=== PATIENT | female | born 1995 | race Caucasian/White ===

== ENCOUNTER 2016-07-13 11:34 | Day surgery (SDC) | payer MEDICAID ==
[~2016-07-13] VITALS: Ht 162.6 cm; Wt 68.0 kg
[2016-07-13 13:50] LABS: BASOPHILS 0.1 % (0.0-2.0); EOSINOPHILS 1.3 % (0-7); HEMOGLOBIN 10.3 g/dL (12-16); IMMATURE GRANULOCYTES 0.2 % (0-5); LYMPHOCYTES 19.6 % (15-50); MCH 25.1 pg (26.0-34.0); MCHC 30.3 g/dL (31.0-37.0); MCV 82.9 fL (80.0-100.0); MEAN PLATELET VOLUME 9.5 fL (7.4-10.4); MONOCYTES 8.5 % (2-11); NEUTROPHILS 70.3 % (40-80); PLATELET COUNT 351 10x3/uL (130-400); RDW 14.5 % (11.5-14.5); WBC 8.7 10x3/uL (4.8-10.8)
[2016-07-13 13:56] LABS: HCG SERUM NEGATIVE (NEGATIVE)
[2016-07-13 14:01] LABS: ALBUMIN 3.2 g/dL (3.4-5.0); ALKALINE PHOSPHATASE 131 U/L (46-116); ALT (SGPT) 42 U/L (10-68); BILIRUBIN - TOTAL 0.27 mg/dL (0.2-1.3); CALC OSMOLALITY 271 mosm/kg (275-300); CALCIUM 9.1 mg/dL (8.5-10.1); CARBON DIOXIDE 25.1 mmol/L (21.0-32.0); CHLORIDE - SERUM 103 mmol/L (98-107); CREATININE - SERUM 0.9 mg/dL (0.6-1.3); GLUCOSE 83 mg/dL (74-106); PROTEIN - SERUM 7.9 g/dL (6.4-8.2); SODIUM 137 mmol/L (136-145); UREA NITROGEN 10 mg/dL (7-18); eGFR NON AFRICAN AMERICAN 85 mL/min (90-120)
[2016-07-13 14:05] LABS: APPEARANCE SLT CLOUDY (CLEAR); BACTERIA MODERATE /hpf (NONE SEEN); BILIRUBIN NEGATIVE (NEGATIVE); COLOR YELLOW (YELLOW); GLUCOSE NEGATIVE (NEGATIVE); KETONE NEGATIVE (NEGATIVE); LEUKOCYTE ESTERASE 2+ (NEGATIVE); NITRITE NEGATIVE (NEGATIVE); PROTEIN 1+ mg/dL (NEGATIVE)
--- NOTE | 2016-07-13 20:44 | NUR ---
RECEIVED PT VIA WC FROM ED, PT TO ROOM 1220, TRANSFERS SELF TO BED, INFORMED PT THAT I WILL BE BACK SHORTLY TO DO ADMITTING ASSESSMENT AND PAPERWORK, PT VERBALIZES UNDERSTANDING, PT ORIENTED TO ROOM, BED IN LOW POSITION, SIDE RAILS X 2, CALL LIGHT IN REACH, S/O AT BEDSIDE
--- NOTE | 2016-07-13 21:41 | NUR ---
ADMITTING ASSESSMENT AND HISTORY INTIATED, IV IN RIGHT AC INTACT WITH NO REDNESS OR EDEMA INFUSING VIA PUMP NS AT 125 ML/HR, PT REPORTS FLATUS, BM YESTERDAY AND VOIDING BY SELF WITH NO DIFFICULTY, PT RATES LOWER RIGHT ABD PAIN 1-2/10 AT THIS TIME
[2016-07-13 21:50] VITALS: BP 118/75; BMI 25.8
--- NOTE | 2016-07-13 22:00 | NUR ---
CONSENTS SIGNED AND WITNESSED
[2016-07-13] MEDS ORDERED: AUGMENTIN 875-11 TAB PO (22:01)
[2016-07-13] MEDS ORDERED: HYDROCODON-ACE1 EAC7 PO (22:01)
--- NOTE | 2016-07-13 22:17 | NUR ---
ADMITTING ASSESSMENT AND HISTORY COMPLETED, DILAUDID BLUE LEATHER SETTER INITIATED, SEE EMAR, PT INST ON AND VERBALIZES UNDERSTANDING OF BLUE LEATHER SETTER, BUTTON TO HAND, PT DECLINES TO PUSH THE BUTTON AT THIS TIME, PT INST ON NPO AFTER MIDNIGHT, VERBALIZES UNDERSTANDING, REQUESTED AND SERVED APPLE JUICE, DENIES FURTHER NEEDS AT THIS TIME
[2016-07-14 00:25] VITALS: BP 114/69
--- NOTE | 2016-07-14 00:25 | NUR ---
PT AWAKE, S/O LAYING IN BED WITH PT, VS OBTAINED, PT INFORMED AGAIN OF NPO, PT VERBALIZES UNDERSTANDING, DENIES NEEDS OR PAIN, REPORTS THAT THE FABRICATION AND LAYOUT CRAFTSMAN IS TAKING CARE OF THE PAIN, BEDDING PROVIDED TO FOB
--- NOTE | 2016-07-14 02:05 | NUR ---
PT RESTING WITH EYES CLOSED, RESP QUIET, NO DISTRESS NOTED, LEFT UNDISTURBED AT THIS TIME, S/O ASLEEP IN BED WITH PT
[2016-07-14 04:03] VITALS: BP 105/56
--- NOTE | 2016-07-14 04:03 | NUR ---
PT RESTING WITH EYES CLOSED, AROUSES TO SOFT VERBAL STIMULATION, VS OBTAINED, I&O'S COLLECTED, PT DENIES NEEDS OR PAIN, S/O ASLEEP IN BED WITH PT
--- NOTE | 2016-07-14 06:11 | NUR ---
PT RESTING WITH EYES CLOSED, AROUSES TO SOFT VERBAL STIMULATION, 0600 MED HUNG IVPB PER MD ORDERS, SEE EMAR, PT DENIES NEEDS OR PAIN AT THIS TIME, S/O ASLEEP IN BED WITH PT
--- NOTE | 2016-07-14 06:57 | NUR ---
ADM ANESTHESIA MEDS, SEE EMAR, LR HUNG VIA PUMP INFUSING AT 50 ML/HR
--- NOTE | 2016-07-14 07:00 | NUR ---
SHIFT REPORT TO DAY SHIFT
[2016-07-14 09:26] VITALS: Ht 162.6 cm; Wt 68.0 kg
--- NOTE | 2016-07-14 12:30 | NUR ---
PT RECEIVED FROM SURGERY S/P APPENDECTOMY. PT IS DROWSY BUT EASILY AWAKENS. LUNGS- CLEAR. HEART- RRR. ABD- SOFT WITH TENDERNESS. LAPAROSCOPIC INCISIONS COVERED WITH BANDAIDS. CLEAN , DRY AND INTACT. EXT- NO EDEMA. PULSE PALPABLE. BED IS LOW, SIDE RAILS UP X 2. CALL LIGHT IN REACH. RECOVERY MANAGER INITIATED AGAIN.
--- NOTE | 2016-07-14 12:36 | NUR ---
PT TOLERATED CLEAR LIQUIDS. PT REQUEST REGULAR DIET. I CALLED DR HERNÁNDEZ AND HE STATED SHE CAN HAVE REGULAR DIET AND CAN BE DISCHARGE THIS PM. PT C/O NO PAIN AT THIS TIME.
--- NOTE | 2016-07-14 13:30 | NUR ---
PT IS SLEEPING IN BED. AT BEDSIDE. BED IS LOW, SIDE RAILS UP X 2 AND CALL LIGHT IN REACH.
--- NOTE | 2016-07-14 14:45 | NUR ---
PT ATE A CHEESEBURGER AND FRIES. PT OFFERS NO COMPLAINTS.
--- NOTE | 2016-07-14 15:57 | NUR ---
PT UP AND AMBULATED APPROX 200 FT IN HALLWAY. TOLERATED WELL.
--- NOTE | 2016-07-14 16:38 | NUR ---
DISCHARGE INSTRUCTIONS GIVEN TO PT, AND MOTHER. HANDOUTS GIVEN WELL PRESCRIPTIONS AND FU APPTS. PT WAS TAKEN TO THE FRONT ENTRANCE TO HER VEHICLE BY WHEELCHAIR.
--- NOTE | 2016-07-14 21:45 | NUR ---
HOUSEKEEPING CALLED MY ATTENTION TO IV PUMP THAT NEEDS TO BE UNLOCKED FOR CLEANING. FOUND HYDROMORPHONE CONVEYOR ATTENDANT SYRINGE IN CONVEYOR ATTENDANT PUMP. PT ALREADY DISCHARGED. TALKED TO SHERRIE IN PHARMACY TO HOW TO WASTE SAID MEDICATION. STATED TO GET ANOTHER NURSE TO WITNESS WASTE AND DOCUMENT ON HER CHART. HYDROMORPHONE 27cc WASTED AND WITNESSED WITH PATRICIA KAUR RN.
--- NOTE | 2016-07-16 09:40 | DS ---
PATIENT:ANUSHA HARRIS :89 MEDICAL RECORD: [id number] DISCHARGE SUMMARY ADMISSION DATE: 07/13/16 DISCHARGE DATE: 07/14/16 PRINCIPAL DIAGNOSIS: Acute appendicitis, nonruptured without abscess, but with localized peritonitis. PROCEDURE: Laparoscopic appendectomy. At the time of this dictation, the pathology is still pending on the operative specimen. HOSPITAL COURSE: The patient was admitted through the Emergency Room. She has CT evidence of acute appendicitis. She underwent laparoscopic appendectomy. She was dismissed home with [place] for pain. Discharge instructions were given to the patient verbally by me. I will see the patient in the office in 3 weeks. TRANSINT:[id number] Voice Confirmation ID: [id number] DOCUMENT ID: [id number] INGRID HERNÁNDEZ MD at 0940 CC: [id number] DICTATION DATE: 07/14/16 1021 ROD FILLER: 07/15/16 0214 DIS IN 07/14/16 [id number] [place] [address]
--- NOTE | 2016-07-16 09:40 | OP ---
PATIENT NAME: ANUSHA HARRIS MEDICAL RECORD: [id number] :[birth year] LOCATION:[facility]1220 ADMISSION DATE:07/13/16 SURGEON: INGRID HERNÁNDEZ MD DATE OF OPERATION: 07/14/2016 PREOPERATIVE DIAGNOSIS: Acute appendicitis with localized peritonitis. POSTOPERATIVE DIAGNOSIS: Acute appendicitis with localized peritonitis without rupture or abscess. PROCEDURE: Laparoscopic appendectomy. SURGEON: Ingrid Hernández MD. CORPORATE TRUST OFFICER: None. BLOOD LOSS: Minimal. ANESTHESIA: General. COMPLICATIONS: None. The risks, possible complications and alternatives to the procedure were explained to the patient. She elects to proceed. OPERATIVE COURSE: The patient was conveyed to the operating room electively on 07/14/2014. General anesthesia was induced by the anesthesia staff. The abdomen was sterilely prepped and draped. An incision was accomplished within the umbilicus. Sharp dissection was carried down to the level of the umbilical fascia. I sharply cleaned the umbilical skin from the underlying fascia and connective tissue. Stay sutures of 0 Vicryl were placed on the side of the umbilicus. The umbilical fascia was incised. A 12-mm trocar was inserted. Under direct internal vision utilizing a television camera, after insufflation, a 5-mm trocar was inserted in the left lower quadrant and another 5-mm trocar was inserted in the right groin. During insertion of the trocars, there was no apparent injury to the bowels, any intraperitoneal or retroperitoneal structures. Abdominal survey was undertaken. The uterus was slightly enlarged and is post-gravid. Both ovaries were slightly enlarged and/or cystic. There was no abscess. I bluntly removed some of the omentum was covering the appendix. I was able to elevate the appendix. A window was created in the mesoappendix. I then took down the mesoappendix with the Harmonic scalpel. I then stapled across the tip of the cecum with an Endo-TAPAN type staple utilizing a blue load. The appendix was placed within an Endobag retrieval device and was withdrawn through the umbilical fascia defect. The 12-mm trocar was replaced and the abdomen reinsufflated. I irrigated and aspirated the right lower quadrant. I aspirated and there was no bleeding. All the trocars were removed and the abdomen desufflated. The skin at the umbilicus was closed with a horizontal mattress 0 Vicryl suture. The skin at the umbilicus was closed with interrupted 4-0 Vicryl Rapide OPERATIVE REPORT [id number] ANUSHA HARRIS sutures. The other skin incisions were closed with interrupted 3-0 Vicryls. Benzoin and Steri-Strips were applied. The patient was then extubated and conveyed to post-anesthesia care unit where she was in stable condition. She can be dismissed home later today on [place] for pain. She is either to stop or to "pump and dump." She is . TRANSINT:[id number] Voice Confirmation ID: [id number] DOCUMENT ID: [id number] INGRID HERNÁNDEZ MD at 0940 CC: LEANN FRIED MD [id number] DICTATION DATE: 07/14/16 1025 CONSTRUCTION SUPERVISOR: 07/14/16 1830 DIS IN 07/14/16 [facility] [address] [place] [address]
--- NOTE | 2016-07-16 09:40 | HP ---
PATIENT: ANUSHA HARRIS MEDICAL RECORD: [id number] ACCOUNT: [id number] LOCATION:[facility]1220 : [birth year] ADMISSION DATE: 07/13/16 HISTORY AND PHYSICAL EXAMINATION HISTORY OF PRESENT ILLNESS: The patient has a right lower quadrant pain as well as suprapubic abdominal pain with tenderness. There is peritonitis to percussion. She has CT evidence of acute appendicitis. The patient is to undergo laparoscopic appendectomy. The risks, possible complications and alternatives to procedure were explained to the patient. She elects to proceed. The discussion specifically included, but was not limited to, bleeding requiring emergency reoperation, infection, intestinal injury as well as open procedure. The patient was recently seen at an outside health care facility and treated for urinary tract infection with amoxicillin. She presented here to the Emergency Room last evening and CT revealed acute appendicitis. Palpation aggravates. Nothing alleviates. Symptoms are moderate in severity. Movement aggravates as well. HOME MEDICINES: Amoxicillin as well as [place]. ALLERGIES: No known drug allergies. REVIEW OF SYSTEMS: Negative for coronary artery disease, CVA, or seizures. No diabetes or thyroid problems. No renal disease or hepatitis. SOCIAL HISTORY: Noncontributory. PHYSICAL EXAMINATION: GENERAL: The patient does not appear acutely ill. She does not appear chronically ill. VITAL SIGNS: Reviewed. HEAD: External ears appear normal. EYES: Extraocular movements are intact. NECK: Trachea is midline. CHEST: No intercostal retractions. PULMONARY: Nonlabored. No stridor. ABDOMEN: As described above. EXTREMITIES: No peripheral cyanosis. INTEGUMENT: No rash. No ulcerations. PSYCHIATRIC: Normal affect. NEUROLOGIC: Nonfocal, no lethargy. The patient answers questions appropriately, moves all extremities well. BACK: No thoracic kyphosis. LYMPHATICS: No lymphangitic streaking of the exposed extremities. IMPRESSION: Acute appendicitis. PLAN: The patient has been started on IV narcotic analgesia. She has been given IV antibiotics as well as intravenous fluids. We will then proceed with laparoscopic appendectomy. TRANSINT:[id number] Voice Confirmation ID: [id number] DOCUMENT ID: [id number] HISTORY AND PHYSICAL [id number] HARRISANUSHA Thomson INGRID MELO MD at 0940 CC: [id number] DICTATION DATE: 07/14/1646 WRAPPING MACHINE OPERATOR: 07/14/1612 DIS IN 07/14/16 [facility] [address] [place] [address]
== END 2016-07-14 16:30 | disposition home or self-care (01) ==
LOC: D.OPS 11:34 → D.ER 11:34 → D.WS 18:00 → EDSTATUS 07-14 12:00 → D.OPS 07-14 16:30 → D.WS 07-14 16:30
PROVIDERS: Emergency Medicine; Physician Assistant; Surgery
PROC: 0DTJ4ZZ Resection of Appendix, Percutaneous Endoscopic Approach (ICD-10-PCS; principal; 2016-07-14 07:30)
DX: K35.3 Acute appendicitis with localized peritonitis (principal)

== ENCOUNTER 2016-07-24 15:36 | Emergency (ER) | payer MEDICAID ==
[2016-07-14 09:26] VITALS: BMI 25.7
[~2016-07-24 15:36] MED LIST: AUGMENTIN 875-11 TAB PO; HYDROCODON-ACE1 EAC7 PO
== END 2016-07-24 16:20 | disposition home or self-care (01) ==
LOC: D.ER 15:36
DX: S31.104A Unspecified open wound of abdominal wall, left lower quadrant without penetration into peritoneal cavity, initial encounter (principal); X58.XXXA Exposure to other specified factors, initial encounter; Y93.89 Activity, other specified; Y92.89 Other specified places as the place of occurrence of the external cause

== ENCOUNTER 2016-09-15 22:49 | Emergency (ER) | payer MEDICAID ==
[2016-07-14 09:26] VITALS: BMI 25.7
[2016-09-15 23:19] LABS: APPEARANCE CLEAR (CLEAR); BILIRUBIN NEGATIVE (NEGATIVE); COLOR YELLOW (YELLOW); GLUCOSE NEGATIVE (NEGATIVE); KETONE NEGATIVE (NEGATIVE); LEUKOCYTE ESTERASE NEGATIVE (NEGATIVE); NITRITE NEGATIVE (NEGATIVE); PROTEIN NEGATIVE (NEGATIVE); UROBILINOGEN NORMAL (NORMAL)
[2016-09-15 23:27] LABS: BASOPHILS 0.3 % (0-2); EOSINOPHILS 1.2 % (0-7); HEMATOCRIT 38.8 % (36.0-48.0); HEMOGLOBIN 12.2 g/dL (12-16); IMMATURE GRANULOCYTES 0.2 % (0-5); LYMPHOCYTES 29.5 % (15-50); MCH 25.7 pg (26.0-34.0); MCHC 31.4 g/dL (31.0-37.0); MCV 81.9 fL (80.0-100.0); MEAN PLATELET VOLUME 9.6 fL (7.4-10.4); MONOCYTES 7.6 % (2-11); NEUTROPHILS 61.2 % (40-80); PLATELET COUNT 473 10x3/uL (130-400); RBC 4.74 10x6/uL (4.00-5.40); RDW 13.8 % (11.5-14.5); WBC 10.2 10x3/uL (4.8-10.8)
[2016-09-15 23:40] LABS: ALBUMIN 3.9 g/dL (3.4-5.0); ALKALINE PHOSPHATASE 131 U/L (46-116); ALT (SGPT) 37 U/L (10-68); BILIRUBIN - TOTAL 0.18 mg/dL (0.2-1.3); CALC OSMOLALITY 274 mosm/kg (275-300); CALCIUM 9.3 mg/dL (8.5-10.1); CARBON DIOXIDE 28.5 mmol/L (21.0-32.0); CHLORIDE - SERUM 102 mmol/L (98-107); CREATININE - SERUM 0.8 mg/dL (0.6-1.3); GLUCOSE 96 mg/dL (74-106); PROTEIN - SERUM 8.5 g/dL (6.4-8.2); SODIUM 138 mmol/L (136-145); UREA NITROGEN 10 mg/dL (7-18); eGFR NON AFRICAN AMERICAN > 90 mL/min (90-120)
== END 2016-09-15 23:50 | disposition home or self-care (01) ==
LOC: D.ER 22:49
PROVIDERS: Emergency Medicine
DX: K59.00 Constipation, unspecified (principal)

== ENCOUNTER 2018-05-05 14:04 | Emergency (ER) | payer MEDICAID ==
[~2018-05-05] VITALS: Ht 162.6 cm; Wt 90.0 kg
[2018-05-05 14:13] VITALS: Ht 162.6 cm; Wt 90.0 kg
[2018-05-05 14:52] LABS: BASOPHILS 0.1 % (0-2); HEMATOCRIT 40.5 % (36.0-48.0); HEMOGLOBIN 13.5 g/dL (12-16); IMMATURE GRANULOCYTES 0.1 % (0-5); LYMPHOCYTES 15.1 % (15-50); MCH 28.7 pg (26.0-34.0); MCHC 33.3 g/dL (31.0-37.0); MEAN PLATELET VOLUME 9.1 fL (7.4-10.4); MONOCYTES 8.8 % (2-11); NEUTROPHILS 74.9 % (40-80); RBC 4.71 10x6/uL (4.00-5.40); RDW 12.8 % (11.5-14.5); WBC 8.3 10x3/uL (4.8-10.8)
[2018-05-05 14:59] LABS: ALBUMIN 3.6 g/dL (3.4-5.0); ALKALINE PHOSPHATASE 95 U/L (46-116); ALT (SGPT) 29 U/L (10-68); BILIRUBIN - TOTAL 0.31 mg/dL (0.2-1.3); CALC OSMOLALITY 271 mosm/kg (275-300); CARBON DIOXIDE 28.3 mmol/L (21.0-32.0); CHLORIDE - SERUM 101 mmol/L (98-107); CREATININE - SERUM 0.9 mg/dL (0.6-1.3); GLUCOSE 87 mg/dL (74-106); POTASSIUM - SERUM 3.7 mmol/L (3.5-5.1); PROTEIN - SERUM 8.4 g/dL (6.4-8.2); SODIUM 137 mmol/L (136-145); UREA NITROGEN 10 mg/dL (7-18); eGFR NON AFRICAN AMERICAN 84 mL/min (90-120)
[2018-05-05 15:03] LABS: AMYLASE - SERUM 29 U/L (25-115); LIPASE 108 U/L (73-393)
[2018-05-05 15:07] LABS: TROPONIN-I < 0.017 ng/mL (0.000-0.060)
[2018-05-05 15:09] LABS: HCG SERUM NEGATIVE (NEGATIVE)
[2018-05-05 15:11] LABS: PLATELET COUNT 338 10x3/uL (130-400)
[2018-05-05 15:33] LABS: APPEARANCE CLEAR (CLEAR); BILIRUBIN NEGATIVE (NEGATIVE); COLOR YELLOW (YELLOW); GLUCOSE NEGATIVE (NEGATIVE); KETONE NEGATIVE (NEGATIVE); NITRITE NEGATIVE (NEGATIVE); PROTEIN NEGATIVE (NEGATIVE); SPECIFIC GRAVITY 1.015 (1.005-1.020); UROBILINOGEN NORMAL (NORMAL)
[2018-05-05] MEDS ORDERED: PROTONIX40 MG PO (16:01)
[2018-05-05] MEDS ORDERED: CARAFATE1 G PO (16:01)
[2018-05-05 16:23] VITALS: BP 120/76
== END 2018-05-05 16:23 | disposition home or self-care (01) ==
LOC: D.ER 14:04
PROVIDERS: Family Medicine
DX: R10.9 Unspecified abdominal pain (principal); K29.70 Gastritis, unspecified, without bleeding

== ENCOUNTER 2020-07-04 18:44 | Emergency (ER) | payer OTHER ==
[~2020-07-04] VITALS: Ht 162.6 cm; Wt 86.4 kg
[~2020-07-04 18:44] MED LIST changes: +CARAFATE1 G PO; +PROTONIX40 MG PO
[2020-07-04 19:18] VITALS: Ht 162.6 cm; Wt 86.4 kg
[2020-07-04 19:54] LABS: BASOPHILS 0.2 % (0-2); EOSINOPHILS 0.4 % (0-7); HEMATOCRIT 40.1 % (36.0-48.0); HEMOGLOBIN 13.3 g/dL (12-16); IMMATURE GRANULOCYTES 0.2 % (0-5); LYMPHOCYTE ABS# 2.53 10x3/uL (1.18-3.74); LYMPHOCYTES 20.7 % (15-50); MCH 28.6 pg (26.0-34.0); MCHC 33.2 g/dL (31.0-37.0); MCV 86.2 fL (80.0-100.0); MEAN PLATELET VOLUME 8.6 fL (7.4-10.4); MONOCYTES 7.2 % (2-11); NEUTROPHIL ABS# 8.73 10x3/uL (1.56-6.13); NEUTROPHILS 71.3 % (40-80); PLATELET COUNT 441 10x3/uL (130-400); RBC 4.65 10x6/uL (4.00-5.40); WBC 12.2 10x3/uL (4.8-10.8)
[2020-07-04 20:08] LABS: CALC OSMOLALITY 268 mosm/kg (275-300); CALCIUM 9.5 mg/dL (8.5-10.1); CARBON DIOXIDE 28.9 mmol/L (21.0-32.0); CHLORIDE - SERUM 100 mmol/L (98-107); CREATININE - SERUM 0.8 mg/dL (0.6-1.3); GLUCOSE 95 mg/dL (74-106); POTASSIUM - SERUM 3.6 mmol/L (3.5-5.1); SODIUM 135 mmol/L (136-145); UREA NITROGEN 9 mg/dL (7-18); eGFR NON AFRICAN AMERICAN > 90 mL/min (90-120)
[2020-07-04 20:37] LABS: ALBUMIN 3.6 g/dL (3.4-5.0); ALKALINE PHOSPHATASE 88 U/L (30-120); ALT (SGPT) 23 U/L (10-68); BILIRUBIN - TOTAL 0.14 mg/dL (0.2-1.3); HCG - QUANTITATIVE (MATERNAL) 48963 mIU/mL; HCG SERUM POSITIVE (NEGATIVE); PROTEIN - SERUM 8.3 g/dL (6.4-8.2)
[2020-07-04 21:00] LABS: BILIRUBIN NEGATIVE (NEGATIVE); KETONE NEGATIVE (NEGATIVE); NITRITE NEGATIVE (NEGATIVE); UROBILINOGEN NORMAL mg/dL (< 2)
[2020-07-04 21:02] LABS: BACTERIA MANY HPF (NONE SEEN)
[2020-07-04] MEDS ORDERED: CEPHALEXIN500 M1 PO (21:56)
[2020-07-04 22:15] VITALS: BP 119/71
== END 2020-07-04 22:32 | disposition home or self-care (01) ==
LOC: D.ER 18:44
PROVIDERS: Emergency Medicine
DX: O23.40 Unspecified infection of urinary tract in pregnancy, unspecified trimester (principal); Z3A.00 Weeks of gestation of pregnancy not specified; K43.9 Ventral hernia without obstruction or gangrene